=== PATIENT | male | born 1940 | race Caucasian/White ===

== ENCOUNTER 2016-08-15 10:03 | Emergency (ER) | payer MEDICARE, OTHER ==
[2016-08-15] MEDS ORDERED: NORVASC5 M2 PO (10:32)
[2016-08-15] MEDS ORDERED: ARICEPT10 M2 PO (10:32)
[2016-08-15] MEDS ORDERED: LEXAPRO10 M2 PO (10:32)
[2016-08-15] MEDS ORDERED: COREG3.125 M1 PO (10:32)
[2016-08-15] MEDS ORDERED: ASPIR 8181 M1 PO (10:33)
[2016-08-15] MEDS ORDERED: SODIUM BICARBO650 M1 PO (10:33)
[2016-08-15] MEDS ORDERED: MEN'S MULTI-VI1 EACH PO (10:34)
[2016-08-15] MEDS ORDERED: VITAMIN D31000 UNI3 PO (10:35)
[2016-08-15] MEDS ORDERED: VITAMIN C500 M3 PO (10:35)
[2016-08-15] MEDS ORDERED: OMEGA 3 PO (10:36)
== END 2016-08-15 11:40 ==
LOC: EDMED 10:03
PROC: 2W3QXYZ Immobilization of Right Lower Leg using Other Device (ICD-10-PCS; principal; 2016-08-15)
DX: S76.111A Strain of right quadriceps muscle, fascia and tendon, initial encounter (principal); E11.9 Type 2 diabetes mellitus without complications; I10 Essential (primary) hypertension; F03.90 Unspecified dementia, unspecified severity, without behavioral disturbance, psychotic disturbance, mood disturbance, and anxiety; Z79.82 Long term (current) use of aspirin; Z79.899 Other long term (current) drug therapy; X50.1XXA Overexertion from prolonged static or awkward postures, initial encounter; Y93.H2 Activity, gardening and landscaping; Y92.017 Garden or yard in single-family (private) house as the place of occurrence of the external cause; Y99.8 Other external cause status